=== PATIENT | female | born 1975 | race Two or more races ===

== ENCOUNTER 2023-02-15 14:58 | Emergency (ER) | payer OTHER ==
[~2023-02-15] VITALS: Ht 172.7 cm; Wt 83.9 kg
== END 2023-02-15 20:08 | disposition home or self-care (01) ==
LOC: ER 14:58
DX: J10.1 Influenza due to other identified influenza virus with other respiratory manifestations (principal); Z20.822 Contact with and (suspected) exposure to COVID-19